=== PATIENT | female | born 1980 | race African-American/Black ===

== ENCOUNTER 2017-12-19 14:09 | Emergency (ER) | payer OTHER ==
[~2017-12-19] VITALS: Ht 165.1 cm; Wt 133.4 kg
[2017-12-19] MEDS ORDERED: TRAZODONE HCL50 MG PO (14:33)
[2017-12-19] MEDS ORDERED: HALDOL DEC100 MG/1 M IM (14:33)
[2017-12-19 14:49] VITALS: BP 132/84
== END 2017-12-19 14:49 | disposition home or self-care (01) ==
LOC: M.ERS 14:09
DX: F41.0 Panic disorder [episodic paroxysmal anxiety] (principal); F20.9 Schizophrenia, unspecified; F32.9 Major depressive disorder, single episode, unspecified; Z90.49 Acquired absence of other specified parts of digestive tract